=== PATIENT | male | born 1955 | race Caucasian/White ===

== ENCOUNTER 2019-08-30 12:57 | Outpatient (CLI) | payer OTHER, SELFPAY ==
--- NOTE | 2019-08-30 13:04 | CT_ITS ---
WS: [id number] CT CERVICAL SPINE HISTORY: CERVICAL DISC DISEASE TECHNIQUE: Contiguous 2.5 mm axial imaging performed through the entire cervical spine. Sagittal and coronal reformats also performed. All CT scans at [facility] use at least one of these do se optimization techniques: automated exposure control; mA and/or kV adjustment per patient size (inc ludes targeted exams where dose is matched to clinical indication); or iterative reconstruction. DLP: 1629.75 mGycm COMPARISON: MRI 05/02/2019 Mild LEFT convex curvature of the cervical spine. Straightening of the normal lordosis. C3 retrolisth esis by 3.3 mm. Advanced degenerative disc space narrowing and osteophytosis from C3-4 through C6-7. No fractures. Craniocervical junction is normally aligned. C1 and C2 are aligned. Odontoid is intact. C2-C3: Small central disc protrusion without stenosis. C3-C4: Osteophytic ridging. Retrolisthesis of C3 with encroachment and narrowing of the thecal sac. M ild encroachment upon the ventral thecal sac by osteophytes. Mild central with moderate bilateral for aminal stenosis. C4-C5: Diffuse osteophytic ridging greater into the RIGHT foramen. Encroachment upon the RIGHT latera l thecal sac and foramen. Mild central with severe RIGHT foraminal stenosis. C5-C6: Diffuse osteophytic ridging with encroachment upon the ventral thecal sac. Moderate central an d bilateral foraminal stenosis. C6-C7: Diffuse osteophytic ridging with encroachment upon the ventral thecal sac. Moderate central an d mild to moderate foraminal stenosis. C7-T1: No stenosis. Small cervical chain lymph nodes. No lymph node enlargement. CT/CT cervical spin wo con* [id number] IMPRESSION: 1. Multilevel advanced degenerative disc disease and osteophytosis throughout the cervical spine. Not progressed since 05/02/2019. 2. C3 retrolisthesis by 3.3 mm. 3. Moderate central and bilateral foraminal stenosis at C5-6 and C6-7, predomi nantly due to osteophyte disease. 4. Moderate bilateral foraminal stenosis since mild central stenosis at C3-4. 5. Severe RIGHT foraminal stenosis at C4-5 predominantly due to an osteophyte.
--- NOTE | 2019-08-30 14:00 | XR_ITS ---
WS: [id number] LATERAL CERVICAL SPINE: 3 view. Lateral radiographs are performed in upright neutral, flexion and extension to the patient's toleranc e. HISTORY: M50.020 Cervical disc disorder with arthropathy. COMPARISON: None available. Limited evaluation of the cervical vertebrae. Lateral projection is limited by rotation. Disc space n arrowing is moderate from C3-4 through C6-7. No fractures. Moderate size osteophytes extend anterior and posterior from the vertebral bodies. Retrolisthesis of C3, C4 and C5 by 2 to 3 mm. During extensi on C3 retrolisthesis is 3.1 mm. Taking into consideration the disc space narrowing and osteophytes an d rotation do not believe there is any significant instability. XR/XR cervical spine fl/ex [id number] IMPRESSION: 1. Severe spondylosis from C3 to C7. 2. Retrolisthesis of C3-C5. No significant instability is documented. 3. C3 retrolisthesis is the most significant but does not change significantly with flexion and extension.
== END 2019-08-30 12:58 | disposition home or self-care (01) ==
LOC: RADWPI 12:59
PROVIDERS: Family Provider Nurse Practitioner; PCP Family Medicine; Referring Provider Family Medicine; Visit Provider Licensed Practical Nurse
DX: M50.020 Cervical disc disorder with myelopathy, mid-cervical region, unspecified level (principal); M47.892 Other spondylosis, cervical region; M48.02 Spinal stenosis, cervical region
CPT/HCPCS: 72040; 72125

== ENCOUNTER → 2019-11-22 14:00 | Outpatient (BNVA) | payer OTHER, SELFPAY | PROVIDERS: Family Provider Nurse Practitioner; PCP Family Medicine; Referring Provider Licensed Practical Nurse; Visit Provider Psychiatry & Neurology Neurology | DX: M54.12 Radiculopathy, cervical region (principal); Z87.891 Personal history of nicotine dependence | CPT/HCPCS: 95886; 95908 ==

== ENCOUNTER → 2019-12-15 11:16 | Outpatient (BNVA) | payer OTHER, SELFPAY | PROVIDERS: Family Provider Nurse Practitioner; PCP Family Medicine; Visit Provider Nurse Practitioner Family | DX: W57.XXXA Bitten or stung by nonvenomous insect and other nonvenomous arthropods, initial encounter (principal); Z86.2 Personal history of diseases of the blood and blood-forming organs and certain disorders involving the immune mechanism | CPT/HCPCS: 85025 ==

== ENCOUNTER 2020-01-17 10:30 | Outpatient (CLI) | payer OTHER, SELFPAY ==
--- NOTE | 2020-01-17 10:41 | MR_ITS ---
WS: [id number] MRI LUMBAR SPINE NONCONTRAST HISTORY: LOW BACK PAIN COMPARISON: None available. TECHNIQUE: Sagittal and axial multisequence imaging is submitted. Mild osteophyte encroachment upon the ventral cervical cord at C3-4. Straightening of the normal lumbar lordosis. No marrow edema or fracture. Severe degenerative disc disease and narrowing at L5-S1. Conus terminates normally at L1-2 disc level. L1-L2: Mild annular disc bulging with a central fissure. No stenosis or disc protrusion. L2-L3: Mild annular disc bulging with central annular fissures. Mild facet and ligamentum flavum arth ritis. No significant stenosis. There is a small amount of fluid in the facet joints. L3-L4: Mild annular disc bulging. Moderate ligamentum flavum hypertrophy and facet joint arthritis. T here is fluid in the facet joints bilaterally. Very mild encroachment upon the subarticular recesses. L4-L5: Mild annular disc bulging with moderate facet and ligamentum flavum hypertrophy. Fluid in the facet joints bilaterally. Mild encroachment upon the LEFT subarticular recess. Small annular fissure in the LEFT foramen. There is mild central and LEFT subarticular recess stenosis. L5-S1: Diffuse osteophytic ridging and annular disc bulging. Disc osteophyte encroachment upon the ve ntral thecal sac. There is moderate central stenosis with more marked subarticular recess stenosis bi laterally. Disc osteophyte encroaching upon the S1 nerve roots bilaterally. Paravertebral soft tissues are negative. MR/MR lumbar spine wo con* [id number] IMPRESSION: 1. Moderate central and bilateral subarticular recess stenosis at L5-S1 predom inantly due to disc osteophyte disease. 2. Mild central and LEFT subarticular recess stenosis at L4-5. 3. Very mild bilateral subarticular recess encroachment at L3-4. 4. Multilevel facet joint arthritis in the lumbar spine. Most significant from L3-4 to L5-S1.
--- NOTE | 2020-01-17 10:41 | XR_ITS ---
WS: [id number] LATERAL LUMBAR SPINE: 3 view. Lateral radiographs are performed in upright neutral, flexion and extension to the patient's toleranc e. HISTORY: LOW BACK PAIN COMPARISON: None available. Mild increase in lumbar lordosis. Posterior vertebral body alignment is normal. No fractures. With fl exion and extension no instability. Moderate to severe degenerative disc space narrowing and osteophytosis at L5-S1. Facet joint arthriti s at L4-5 and L5-S1 is mild. Scattered atherosclerotic plaque within the aorta. XR/XR lumbar spine f/e only [id number] IMPRESSION: 1. No lumbar spine instability. 2. Moderate to severe degenerative disc disease at L5-S1 with osteophytic ridg ing.
== END 2020-01-17 10:31 | disposition home or self-care (01) ==
LOC: RADWPI 10:35
PROVIDERS: Family Provider Nurse Practitioner; PCP Family Medicine; Visit Provider Nurse Practitioner
DX: M54.5 Low back pain (principal); M51.37 Other intervertebral disc degeneration, lumbosacral region; M25.78 Osteophyte, vertebrae; M48.07 Spinal stenosis, lumbosacral region; M47.9 Spondylosis, unspecified
CPT/HCPCS: 72120; 72148

== ENCOUNTER → 2020-09-04 08:13 | Outpatient (BNVA) | payer OTHER, SELFPAY | PROVIDERS: Family Provider Nurse Practitioner; PCP Nurse Practitioner; Visit Provider Specialist | DX: M50.020 Cervical disc disorder with myelopathy, mid-cervical region, unspecified level (principal); M47.816 Spondylosis without myelopathy or radiculopathy, lumbar region; M47.812 Spondylosis without myelopathy or radiculopathy, cervical region; M48.02 Spinal stenosis, cervical region; M54.31 Sciatica, right side; Z87.891 Personal history of nicotine dependence | CPT/HCPCS: 99215 ==

== ENCOUNTER 2021-01-09 07:49 | Day surgery (SDC) | payer OTHER, SELFPAY ==
[2021-01-08 18:30] VITALS: BMI 23.7
--- NOTE | 2021-01-09 08:14 | ECG_ITS ---
[facility] Test Date: 2021-01-09 Pat Name: Todd Santana Department: Room: Gender: Male Product Sales Representative: : 1955 Requested By: Arvin Thorpe Order Number: [id number] Alfred MD: Jose Hood M.D. Measurements Intervals Bradley Rate: 75 P: 65 MN: 154 QRS: 53 QRSD: 101 T: 20 QT: 376 QTc: 420 Interpretive Statements SINUS RHYTHM Compared to ECG 11/25/2017 11:56:13 Sinus bradycardia no longer present Electronically Signed On 01-09-2021 17:43:31 CDT by Jose Hood M.D. [id number]
[2021-01-09 08:28] VITALS: BP 111/72; PULSE 78; RESP 18; TEMP 36.2; O2SAT 98; BMI 23.7
[2021-01-09 08:49] LABS: Glucose Point of Care 146 mg/dL (70-110)
[2021-01-09] MEDS: sodium chloride 0.9% 1,000 ML 30 ML IV (08:54)
[2021-01-09 09:18] LABS: Anion Gap 13.6 (5-19); Blood Urea Nitrogen 19 mg/dL (8-23); Calcium 8.7 mg/dL (8.5-10.5); Carbon Dioxide 24 mmol/L (22-29); Chloride 106 mmol/L (98-107); Glomerular Filtration Rate 113.2 mL/min (90-130); Glucose 151 mg/dL (65-115); Osmolality Calculated 293 mOsm/kg (285-295); Potassium 4.6 mmol/L (3.5-5.1); Sodium 139 mmol/L (136-145)
--- NOTE | 2021-01-09 10:13 | SUR.PHASEII ---
patient arrived today for back surgery. After anesthesia reviewed the patients chart they decided to cancel the surgery do to patient needing a cardiac clearance. Discharged patient home to await appointment to see publicity person.
--- NOTE | 2021-01-09 13:46 | PM.MISC ---
Miscellaneous Note Purpose of Documentation: Surgery Note: Patient saw Dr. Dewitt in August and was supposed to have pharmacologic stress test for hx of PCI in 2018 with ? unsuccessful stent placement and complaints of increasing chest pains relieved by nitroglycerin. Patient elected not to go to his appointment for unclear reasons. States he did not want chemicals in his body and then told another provider no one called him for his appointment. Unable to contact Dr. Dewitt, however contacted Dr. Vanegas, nuclear control operator recreation program coordinator, who will try to follow up with Dr Dewitt regarding rescheduling of the stress test.
== END 2021-01-09 11:36 | disposition home or self-care (01) ==
LOC: OR 07:51
PROVIDERS: Anesthesiology; PCP Nurse Practitioner; Visit Provider Orthopaedic Surgery
PROC: (CPT 63005; principal; 2021-01-09 09:45)
DX: Z53.8 Procedure and treatment not carried out for other reasons (principal)
CPT/HCPCS: 36415; 36416; 80048; 82962; 93005; J1100; J2250; J2405; J2704; J2710; J3010; J3490; J7030

== ENCOUNTER → 2021-04-30 09:29 | Outpatient (BNVA) | payer OTHER, SELFPAY | PROVIDERS: PCP Nurse Practitioner; Visit Provider Orthopaedic Surgery | DX: M48.062 Spinal stenosis, lumbar region with neurogenic claudication (principal) | CPT/HCPCS: 72110 ==

== ENCOUNTER → 2021-06-27 12:37 | Day surgery (SDC) | payer OTHER, SELFPAY | PROVIDERS: PCP Nurse Practitioner; Visit Provider Orthopaedic Surgery | DX: Z01.818 Encounter for other preprocedural examination (principal); M48.062 Spinal stenosis, lumbar region with neurogenic claudication | CPT/HCPCS: 93005 ==

== ENCOUNTER → 2021-06-27 14:06 | Outpatient (BNVA) | payer OTHER, SELFPAY | PROVIDERS: PCP Nurse Practitioner; Visit Provider Orthopaedic Surgery | DX: Z01.812 Encounter for preprocedural laboratory examination (principal); Z20.822 Contact with and (suspected) exposure to COVID-19 | CPT/HCPCS: 87635 ==

== ENCOUNTER 2021-07-03 07:04 | Day surgery (SDC) | payer OTHER, SELFPAY ==
--- NOTE | 2021-06-27 12:37 | ECG_ITS ---
[facility] Test Date: 2021-06-27 Pat Name: Todd Santana Department: Room: Gender: Male Brand Coordinator: : 1955 Requested By: Roge Galindo Order Number: [id number] Alfred MD: Ericka Dewitt M.D. Measurements Intervals Eckert Rate: 67 P: 72 MS: 150 QRS: 56 QRSD: 95 T: 44 QT: 370 QTc: 393 Interpretive Statements SINUS RHYTHM Compared to ECG 01/09/2021 08:25:20 No significant changes Electronically Signed On 06-27-2021 22:56:12 BARREL CLEANER by Ericka Dewitt M.D. [email or web address] [facility]mer[email or web address]/store/[id number]
[2021-06-27 12:50] VITALS: BMI 23.7
[2021-06-27 13:37] LABS: Basophils % 0.5 %; Eosinophils # 0.1 10^3/uL (0.0-0.8); Eosinophils % 1.5 %; Hematocrit 45.1 % (42.0-52.0); Hemoglobin 14.6 g/dL (11.7-16.6); Lymphocytes % 38.3 %; Mean Corpuscular HGB Conc 32.4 g/dL (30.0-36.0); Mean Corpuscular Volume 95.8 fl (80-94); Mean Platelet Volume 11.2 fL (7.4-10.4); Monocytes # 0.3 10^3/uL (0.2-0.9); Monocytes % 4.3 %; Neutrophils # 4.33 10^3/uL (1.8-7.7); Neutrophils % 55.1 %; Nucleated Red Blood Cells % 0 %; Platelet Count 251 10^3/cmm (130-400); Red Blood Count 4.71 10^6/uL (4.1-5.3); Red Cell Distribution Width 12.9 % (12.1-15.1); White Blood Count 7.9 10^3/uL (4.0-10.0)
--- NOTE | 2021-06-27 14:44 | P.ANESASSM_ITS ---
Pre-Anesthetic Assessment Pre-Anesthetic Assessment: Height/Weight: Height 1.83 m Weight 79.379 kg Preop Diagnosis: lumbar stenosis Proposed Procedure: Operation Date: 07/03/21 08:45 Proposed Procedures p Lumbar Spine Decompression L5-S1 L4-5 [id number] M48.062(Not Applicable) - Arvin H Cindi, DO Was Beta Ute taken within 24 hours: N/A Was Clonidine taken within 24 hours: N/A Social: Social History: No alcohol and No tobacco Exam: Pre-Anes Outpt Exam: alert, oriented x 3, clear to auscultation bilaterally and regular rate & rhythm Airway: Submandibular: WNL Cervical ROM: Other (limited) MP: 2 Dentition: False History/ROS: No significant complaints CV/HEM: CV/HEM: HTN Metabolic: Metabolic: DM and Hyperlipidemia Anesthetic Plan: ASA status: 3 Anesthesia: Anesthesia Evaluation and General Risk of > 500 ml blood loss (7ml/kg in children): No PFSH Anesthesia PFSH: Medical History 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 region Cervical radiculopathy Cervical spinal stenosis Degenerative arthritis Diabetes mellitus Dyslipidemia (high LDL; low HDL) Low back pain Sciatica of right side Spondylolisthesis of cervical region Type 1 diabetes Surgical History History of hernia repair Family History Father Diabetes CAD (coronary artery disease) Sister Cancer Family/Other Cancer Denies family history of Clotting disorder Dementia Chronic kidney disease (CKD) Suicide Anesthesia complication Bleeding disorder Lung disease Stroke Social History Alcohol intake: never Lives independently: Yes Marital status: Marital status details: Legally but have not been with spouse in 16 years service: Yes Current occupational status: disabled History of recent travel: No Data Anesthesia CBC & Chem 7: 06/27/21 13:08 06/27/21 13:08 Other Labs: Laboratory Results - last 48 hr 06/27/21 13:08 WBC 7.9 RBC 4.71 Hgb 14.6 Hct 45.1 MCV 95.8 H MCH 31.0 MCHC 32.4 RDW 12.9 Plt Count 251 MPV 11.2 H Neut % (Auto) 55.1 Lymph % (Auto) 38.3 [place] % (Auto) 4.3 Eos % (Auto) 1.5 Baso % (Auto) 0.5 Neut # (Auto) 4.33 Lymph # (Auto) 3.0 [place] # (Auto) 0.3 Eos # (Auto) 0.1 Baso # (Auto) 0.0 Nucleated RBC % (auto) 0 Nucleated RBCs # 0.0 Cardiac Studies: No Data to Display
[2021-06-27 15:05] LABS: Anion Gap 16.2 (5-19); Blood Urea Nitrogen 12 mg/dL (8-23); Carbon Dioxide 21 mmol/L (22-29); Chloride 107 mmol/L (98-107); Glomerular Filtration Rate 96.7 mL/min (90-130); Glucose 148 mg/dL (65-115); Osmolality Calculated 293 mOsm/kg (285-295); Potassium 4.2 mmol/L (3.5-5.1); Sodium 140 mmol/L (136-145)
[2021-07-03] VITALS (7 sets, daily range): BP systolic 131–144; BP diastolic 56–95; PULSE 57–98; RESP 15–18; TEMP 36.2–36.6; O2SAT 95–100
--- NOTE | 2021-07-03 | XR_ITS ---
WS: [id number] Exam: XR lumbar spine 1V [id number] Date/Time of Exam: 07/03/2021 12:00 AM Reason For Exam: Decompression There are 3 Limited AP intraoperative images of the lower lumbar spine are submitted for evaluation. 2 of the images demonstrate a port superimposed at the level of the L4-5 disc. The third image depict s the port superimposing the L5-S1 disc level. No other significant finding on this limited series.
--- NOTE | 2021-07-03 | SCC_ITS ---
Procedure Done: 1. Bilateral L4/5 laminectomy with partail facetectomies 2. Bilateral L5/S1 laminectmy with partial facetectomies 19.1 seconds of fluoroscopic guidance, for a cumulative dose of 4.29 mGy, was provided to Dr. Puente by the radiology department. C-arm images of the lumbar spine were saved for the patient's permanent record. [facility]
[2021-07-03 08:31] LABS: Glucose Point of Care 141 mg/dL (70-110)
[2021-07-03] MEDS: sodium chloride 0.9% 1,000 ML 30 ML IV (08:31)
--- NOTE | 2021-07-03 10:58 | P.ANESUD_ITS ---
Pre-Anesthetic Update Pre-Anesthetic Assessment: Date of Surgery/Procedure: 07/03/21 Preop Samantha gnosis: Lumbar stenosis with neurogenic claudication Proposed Procedure: Operation Date: 07/03/21 09:45 Proposed Procedures p Lumbar Spine Decompression L5-S1 L4-5 [id number] M48.062(Not Applicable) - Arvin H Cindi, DO Any changes to Pre-Anesthetic Assessment?: No Last Intake: Intake Last Liquid Date 07/02/21 Last Liquid Time 16:00 Last Solid Date 07/02/21 Last Solid Time 16:00 Labs Last 48hrs: Laboratory Results - last 48 hr 07/03/21 08:24 POC Glucose 141 H Vitals: Temperature 97.8 F 07/03/21 08:04 Temperature Source Temporal Artery S can 07/03/21 08:04 Pulse Rate 73 07/03/21 08:04 Respiratory Rate 18 07/03/21 08:04 Pulse Oximetry 97 07/03/21 08:04 Oxygen Delivery Me thod 07/03/21 08:04 Exam: Pre-Anes Outpt Exam: alert, oriented x 3, clear to auscultation bilaterally and regular rate & rhythm Cardiac Studies: No Data to Display
--- NOTE | 2021-07-03 11:15 | P.HP_ITS ---
Providers/Chief Complaint Primary Care Provider: KALEE Franco Chief Complaint: Spinal Stenosis History of Present Illness Todd Santana is a 66 year old male years Onset: years with no known injury Duration: years over the last 4-5 years Characteristics: burning, ache and shooting Severity: 03/26 Location: low Radiating symptoms: anterior right thigh into foot and ankle with some pain to the left lower extremity Aggravating factors: walking for ling distances, lifting, laying Alleviating factors: rest, lyrica Neuro deficits: denies incontinence of bowel/bladder, saddle anesthesia. Prior tx:epidural injections with relief for a day, Associated symptoms: Denies abdominal pain, chills, fever(s), nausea or vomiting Review of Systems Narrative: General ROS: negative for weight changes, fever ENT ROS: negative for nasal congestion, drainage or bleeding, sore throat, dysphagia or ear pain Eyes: PERRL Hematological and Lymphatic ROS: negative for swollen glands or abnormal bleeding Endocrine ROS: negative for polyuria/polydpsia or new changes in weight Respiratory ROS: negative for cough, shortness of breath, or wheezing Cardiovascular ROS: negative for chest pain or dyspnea on exertion Gastrointestinal ROS: negative for reflux, abdominal pain, change in bowel habits, or black or bloody stools Musculoskeletal ROS: negative for back pain, neck pain, or joint pain or swelling except for current problem Neurological ROS: negative for TIA or stoke symptoms Skin: no rashes Medications/Allergies Home Medications Medication Instructions Recorded Confirmed Last Taken Type alogliptin 25 mg tablet 25 mg PO QAM 08/18/19 07/03/21 07/02/21 History baclofen 20 mg tablet 20 mg PO TID PRN 08/18/19 07/03/21 07/02/21 History celecoxib 100 mg capsule 100 mg PO BID 08/18/19 07/03/21 07/02/21 History ferrous sulfate 325 mg (65 mg 325 mg PO ONCE tab 08/18/19 07/03/21 07/02/21 History iron) tablet atorvastatin 40 mg tablet 40 mg PO DAILY tab 08/30/20 07/03/21 07/02/21 History glipizide 5 mg tablet 2.5 mg PO BID tab 08/30/20 07/03/21 07/02/21 History lisinopril 40 mg tablet 40 mg PO DAILY 90 Days #90 tab 08/30/20 07/03/2107/02/ 21 Rx pregabalin 300 mg capsule 300 mg PO BID 08/30/20 07/03/21 07/03/21 03:30 History aspirin-acetaminophen (buffer) 1 tab PO BID 01/08/21 07/03/21 07/02/21 History diphenhydramine HCl [Sleep Aid 50 mg PO BEDTIME PRN 01/08/21 07/03/21 07/02/21 History (diphenhydramine)] zonisamide 100 mg capsule See Rx Instructions .ROUTE 06/18/21 07/03/21 07/02/21 Rx .COMPLEX #60 cap Allergies Allergy/AdvReac Type Severity Reaction Status Date / Time metformin AdvReac Intermediate weakness Verified 07/03/21 07:54 PFSH Acute PFSH: Medical History 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 region Cervical radiculopathy Cervical spinal stenosis Degenerative arthritis Diabetes mellitus Dyslipidemia (high LDL; low HDL) Low back pain Sciatica of right side Spondylolisthesis of cervical region Type 1 diabetes Surgical History History of hernia repair Family History Father Diabetes CAD (coronary artery disease) Sister Cancer Family/Other Cancer Denies family history of Clotting disorder Dementia Chronic kidney disease (CKD) Suicide Anesthesia complication Bleeding disorder Lung disease Stroke Social History Alcohol intake: never Lives independently: Yes Marital status: Marital status details: Legally but have not been with spouse in 16 years service: Yes Current occupational status: disabled History of recent travel: No Vitals/I&O/Wt Last Vital Signs Temp 97.8 F 07/03/21 08:04 Pulse 73 07/03/21 08:04 Resp 18 07/03/21 08:04 Pulse Ox 97 07/03/21 08:04 Physical Exam Narrative: EXAM NARRATIVE: CONSTITUTIONAL: The patient is a normal appearing [] in no apparent distress. GENERAL: Patient in no acute distress. CARDIAC: Regular rate and rhythm. CHEST: Normal inspiratory effort, normal respiratory rate. ABDOMEN: Soft and nontender. SKIN: Clear, warm and intact. NEURO?PSYCH: The patient is alert and oriented to person, place and time. Sensorv /SILT Motor StrengthShoulder abduction C5 5/5Wrist extension C6 5/5Elbow extension C7 5/5Hand Plastic Welder C8 5/5Finger abduction T15/5 Radial/ Ulnar/ Median n intact LowerSensory (SILT)Motor StrengthHin flexion L2/3Ant/inner thigh 5/5Hip adduction L2/3 5/5Knee extension L4 Lat thigh, 5/5Toe dorsiflexion L5 5/5Ankle dorsiflexion L5/ X35Vgcvwes flexion S1 5/5 DTRBleeps 2+Triceps 2+Brachioradialis 2+Patellar 2+Achilles 2+ MUSCULOSKELETAL: [] UPPEREXTREMITIES: The patient had full active ROM in fingers, wrist, elbow, and shoulder. The patient demonstrated ability to fully flex/extend/abduct/adduct fingers, make ok sign, cross 2nd/3rd digits, extend 1st digit fully.. Radial pulse 2+, CR<2 seconds. LOWER EXTREMITIES: Pt has full, active ROM of toes, ankle, knee, and hip. Dorsalis pedis/posterior tibialis pulses 2+, CR<2 seconds. SPINE: Skin warm, dry, intact. Data : 06/27/21 13:08 06/27/21 13:08 A&P Assessment and plan (1) Lumbar stenosis with neurogenic claudication: Lumbar decompression Status: Acute Attestations Medical Necessity Statement*: failed conservative tx Coding Level of Care Code Acute Clinical Educator for [facility] Fwd Diagnoses Lumbar stenosis with neurogenic claudication M48.062
--- NOTE | 2021-07-03 13:14 | P.OP_ITS ---
Operative Report Date of procedure: July 03, 2021 Pre-op Diagnosis: Lumbar stenosis with neurogenic claudication Post-op diagnosis: same Procedure Done: 1. Bilateral L4/5 laminectomy with partail facetectomies 2. Bilateral L5/S1 laminectmy with partial facetectomies Anesthesia: General Estimated blood loss (mL): 5 Condition: stable Disposition: PACU Procedure: 1. Bilateral L4/5 laminectomy with partail facetectomies 2. Bilateral L5/S1 laminectmy with partial facetectomies Patient is brought to the operative suite. After undergoing anesthesia they are placed in the prone position. All areas of impingement are well padded. Patient is then prepped and draped in the normal sterile fashion. A skin incision is made over the L4/5 level. This is confirmed under c-arm guidance. A series of dilators are passed and the tubular retractor is docked on the L4 lamina. A bovie is used to clear the soft tissue off the lamina and the L 4/5 facet joint. A high speed jovon is then used to perform the laminectomy and take down the medial aspect of the L 4/5 facet joint. A kerrison rongeure was then used to take down the remaining lamina and smooth the edged of the laminectomy up to the point where the ligamentum flavum attaches. Attention was then brought to the medial aspect of the facet joint. The remaining medial aspect of the superior and inferior aspect of the facet joint were taken down with the kerrison from the pedicle of L4 to L 5. The facet joint had significant hypertrophy. Attention was then brought to the Ligamentum Flavum. The ligament was taken down from the lamina of L4 to L5 and out medially to the remaining facet joint. The ligament was thick. The dura was then exposed. The dura was in good repair. The L4 nerve was then traced with a curette out the L4/5 foramen and found to be adequately decompressed. The L5 nerve was traced with a curette around the L5 pedicle. The lateral recess was opened with a kerrison helping to further decompress the L5 nerve. The tubular retractor was then tilted to the contralateral side. The bovie was used to take down the soft tissue on the spinous process. The high speed jovon was used to take down the spinous process and then the contralateral lamina of L4. The kerrison rongeur was used to take down the remaining lamina to the point where the ligamentum flavum attached and the ligamentum flavum was taken down from L4 to L5. The kerrison rongeur was then used to reach across and take down the medial aspect of the contralateral L4/5 facet joint.The currete was used to trace the contralateral L4 nerve out the L4/5 foramen to make sure it was decompressed adequatesly and the L5 was traced around the L5 pedicle. The lateral recess was opened further with the kerrison to ensure the L5 is adequately decompressed. Wound is then irrigated copiously with saline and surgiflo is used to stop any bleeding. The tubular retractor is removed and A skin incision is made over the L5/S1 level. This is confirmed under c-arm guidance. A series of dilators are passed and the tubular retractor is docked o n the L5 lamina. A bovie is used to clear the soft tissue off the lamina and the L 5/S1 facet joint. A high speed jovon is then used to perform the laminectomy and take down the medial aspect of the L 5/S1 facet joint. A kerrison rongeure was then used to take down the remaining lamina and smooth the edged of the laminectomy up to the point where the ligamentum flavum attaches. Attention was then brought to the medial aspect of the facet joint. The remaining medial aspect of the superior and inferior aspect of the facet joint were taken down with the kerrison from the pedicle of L5 to S1. The facet joint had significant hypertrophy. Attention was then brought to the Ligamentum Flavum. The ligament was taken down from the lamina of L5 to S1 and out medially to the remaining facet joint. The ligament was thick. The dura was then exposed. The dura was in good repair. The L5 nerve was then traced with a curette out the L5/S1 foramen and found to be adequately decompressed. The S1 nerve was traced with a curette around the S1 pedicle. The lateral recess was opened with a kerrison helping to further decompress the S1 nerve. The tubular retractor was then tilted to the contralateral side. The bovie was used to take down the soft tissue on the spinous process. The high speed jovon was used to take down the spinous process and then the contralateral lamina of L5. The kerrison rongeur was used to take down the remaining lamina to the point where the ligamentum flavum attached and the ligamentum flavum was taken down from L5 to S1. The kerrison rongeur was then used to reach across and take down the medial aspect of the contralateral L5/S1 facet joint.The currete was used to trace the contralateral L5/S1 nerve out the L5/S1 foramen to make sure it was decompressed adequatesly and the S1 was traced around the S1 pedicle. The lateral recess was opened further with the kerrison to ensure the S1 is adequately decompressed. Wound is then irrigated copiously with saline and surgiflo is used to stop any bleeding. The tubular retractor is removed and the wound is closed with vicryl and monocryl suture. Glue is then used to protect the wound. A sterile dressing is then placed. Patient was then placed in the supine position and transferred to the PACU in stable condition.
--- NOTE | 2021-07-03 14:50 | ANE.PACU2 ---
Inpatient post-anesthesia follow up: Airway intact: Yes Vital signs: Temperature 97.1 F Pulse Rate 57 Respiratory Rate 18 Blood Pressure 141/72 Pulse Oximetry 95 Oxygen Delivery Me thod Room Air Oxygen Flow Rate 10 Fraction of Inspir ed Oxygen Hydration adequate: Yes Nausea and vomiting: No Pain level: 3 Mental status: Baseline
== END 2021-07-03 14:31 | disposition home or self-care (01) ==
PROVIDERS: Student in an Organized Health Care Education/Training Program; PCP Nurse Practitioner; Visit Provider Orthopaedic Surgery
PROC: (CPT 63005; principal; 2021-07-03 09:35)
DX: M48.062 Spinal stenosis, lumbar region with neurogenic claudication (principal); M54.12 Radiculopathy, cervical region; M54.31 Sciatica, right side; E10.9 Type 1 diabetes mellitus without complications; Z79.84 Long term (current) use of oral hypoglycemic drugs
CPT/HCPCS: 63047; 63048; 36415; 36416; 72020; 76000; 80048; 82962; 85025; J1100; J2405; J2704; J3010; J3490; J7030

== ENCOUNTER 2022-04-16 07:35 | Outpatient (CLI) | payer OTHER, SELFPAY ==
--- NOTE | 2022-04-16 08:05 | USCV_ITS ---
Esther Todd Age: 67 Gender: M : 1955 Exam Date: 04/16/2022 08:13 Ordering Phys: Leslie Christensen Technologist: VANNA Exam Location: [facility] – [place] Indication: AAA SCREENING HISTORY: Diameter (cm) AP x Transverse x Length Velocity (cm/s) Waveform Prox Aorta: 2.14 x 2.21 x 84.10 Mid Aorta: 1.86 x 1.91 x 52.60 Distal Aorta: 1.45 x 1.67 x 41.40 Right Iliac Prox: 0.48 x 1.02 x 94.20 Left Iliac Prox: 0.73 x 1.00 x 92.50 Stent Prox Landing x x Aneurysmal Sac Max x x Lt Lat Sac Dim Rt Lat Sac Dim Stent Dist Landing x x Right Iliac Stent x x Left Iliac Stent x x Right Renal Art Left Renal Art FINDINGS: Comparison: none available. Ectatic abdominal aorta with evidence of atherosclerotic plaque noted. No evidence of abdominal aortic aneurysm. There is evidence of atherosclerotic plaque no significan stenosis in the right common iliac artery. There is evidence of atherosclerotic plaque no significan stenosis in the left common iliac artery. CONCLUSIONS No evidence of abdominal aortic or bilateral iliac aneurysm. Dr. Hilary Zarco DO (Electronically Signed) Final Date: 16 April 2022 09:24 S
== END 2022-04-16 07:36 | disposition home or self-care (01) ==
PROVIDERS: PCP Nurse Practitioner; Visit Provider Nurse Practitioner
DX: Z13.6 Encounter for screening for cardiovascular disorders (principal)
CPT/HCPCS: 76706

== ENCOUNTER → 2023-07-29 13:04 | Outpatient (BNVA) | payer OTHER, SELFPAY | PROVIDERS: PCP Nurse Practitioner; Visit Provider Specialist | DX: M25.552 Pain in left hip | CPT/HCPCS: 73502; 99204 ==

== ENCOUNTER 2023-08-27 08:54 | Outpatient (CLI) | payer OTHER, SELFPAY ==
--- NOTE | 2023-08-27 10:15 | MR_ITS ---
WS: [id number] MRI LEFT HIP WITHOUT CONTRAST. COMPARISON: Radiograph 07/29/2023 Multiplanar, multisequence imaging is performed without contrast. Symmetric appearance of the hip joints. Very mild narrowing of the hip joints. No marrow edema or fra cture. No dislocation. No trochanteric bursitis. Symmetric appearance of the muscles and hips. The la dae is normal. No labral tear identified. Normal SI joints. IMPRESSION: Negative MRI LEFT hip. Very minimal degenerative joint disease. No joint effusion or marrow edema.
== END 2023-08-27 08:55 | disposition home or self-care (01) ==
LOC: RAD 08:55
PROVIDERS: PCP Nurse Practitioner; Visit Provider Specialist
DX: M17.12 Unilateral primary osteoarthritis, left knee (principal)
CPT/HCPCS: 73721

== ENCOUNTER → 2024-05-05 13:10 | Outpatient (BNVA) | payer OTHER, SELFPAY | PROVIDERS: PCP Nurse Practitioner; Referring Provider Nurse Practitioner; Visit Provider Nurse Practitioner Family | DX: D48.5 Neoplasm of uncertain behavior of skin (principal); L57.0 Actinic keratosis; L57.8 Other skin changes due to chronic exposure to nonionizing radiation; L81.4 Other melanin hyperpigmentation; D22.5 Melanocytic nevi of trunk | CPT/HCPCS: 11102; 17000; 99203 ==